=== PATIENT | male | born 1950 | race Caucasian/White ===

== ENCOUNTER → 2017-03-08 | Outpatient (CLI) | payer OTHER, BC | LOC: BHFA 10:45 | PROVIDERS: ATTEND Internal Medicine Cardiovascular Disease | DX: R06.00 Dyspnea, unspecified (principal) ==

== ENCOUNTER → 2017-03-12 | Outpatient (CLI) | payer OTHER, BC | LOC: BHFA 10:30 | PROVIDERS: ATTEND Internal Medicine Cardiovascular Disease | DX: I25.10 Atherosclerotic heart disease of native coronary artery without angina pectoris (principal); I49.3 Ventricular premature depolarization; Z95.5 Presence of coronary angioplasty implant and graft ==

== ENCOUNTER 2017-03-23 20:11 | Emergency (ER) | payer OTHER, BC ==
[2017-03-23 20:16] VITALS: TEMP 97.5; O2SAT 100
--- NOTE | 2017-03-23 20:23 | CPEKG ---
Heart Rate: 48 RR Interval: 1250 P-R Interval: 180 QRSD Interval: 96 QT Interval: 468 QTC Interval: 419 P [place]: 49 QRS [place]: 21 T Wave [place]: 103 EKG Severity - ABNORMAL ECG - EKG Impression: SINUS BRADYCARDIA EKG Impression: NONSPECIFIC T ABNORMALITIES, LATERAL LEADS Electronically Signed By: Tawanda Michelle 23-Mar-2017 20:46:08
--- NOTE | 2017-03-23 20:26 | EDPHY ---
HPI/HX/ROS/PE/MDM Narrative: CHIEF COMPLAINT: Shortness of breath HPI: This patient is a 66-year-old male with history of coronary artery disease with stenting who presents to the Emergency Department complaining of gradually worsening dyspnea over the past month. He was seen two weeks ago by Dr. Teague, his molding technician, and had a normal echocardiogram two weeks ago. Tonight, he felt that he was gasping for air with the sensation of chest tightness, prompting his presentation to the ED. At time of arrival, he is feeling better following administration of O2 via nasal cannula. He has no complaints. He denies any recent travel. Medical history also includes Lyme Disease diagnosis in September 2016. REVIEW OF SYSTEMS: Aside from elements discussed in the HPI, a comprehensive 10-point review of systems was reviewed and is negative. PMH: Lyme disease (September 2016), CAD with 7 stents and remote history of CABG, seep apnea (CPAP). SOCIAL HISTORY: at bedside. PHYSICAL EXAM: General:Patient is alert, in no acute distress. ENT:Eyes are normal to inspection. ENT inspection normal. Neck: Normal inspection. Full range of motion. Respiratory:No respiratory distress. Breath sounds normal bilaterally. Cardiovascular: Regular rate and rhythm. Strong peripheral pulses. Normal cap refill. Abdomen:The abdomen is nontender to palpation. There are no peritoneal signs. There are normal bowel sounds. Back: Normal to inspection. No tenderness to palpation. Skin: Normal color. No rash. Warm and dry. Extremities: Normal appearance. Full range of motion. Neuro: Oriented x3. Normal motor function. Normal sensory function. ED Course: 66-year-old male with history of CAD and recent diagnosis of Lyme Disease presents with complaint of worsening dyspnea of the past month, most severe tonight when he was gasping for air. He has been evaluated recently by cardiology with a normal echo. He is tachypneic with RR 21 and bradycardic with HR 47 at time of arrival. No significant findings on exam. Will proceed with labs, EKG, and chest x-ray. Patient was placed on O2 via NC and reports significant improvement to his dyspnea. EKG was ordered and interpreted by myself. Sinus bradycardia, rate 48. Please see [employer] system for official reading. Labs obtained and are largely unremarkable. Troponin is negative. D-dimer is negative. NT-proBNP is normal. Chest x-ray reviewed by me is normal. I discussed EKG, imaging, and lab findings with the patient. He is asymptomatic at this time and feels comfortable returning home. I offered him admission for further observation and evaluation; he declines this. Ambulatory O2 sat is 98% on RA. The patient will be discharged home in good condition with strict return precautions and instructions to follow-up with a developer programmer analyst. He is agreeable to this. MDM: This patient presents with subjective dyspnea of unclear etiology. Given his cardiac history, we performed an extensive workup to exclude ACS, PE, PNA, PTX, and CHF, and there are no signs of these disorders. The patient has a normal BNP, d-dimer, troponin, CXR and vital signs. He is not hypoxic. His lungs are clear. The etiology of his symptoms is unclear but given presence of symptoms for one month with recent negative echo and normal workup here, I think he is safe for outpatient management. - Data Points Imaging Results: Imaging Impressions Chest X-Ray 03/23/17 20:28 Impression: 1. Postoperative changes related to previous open heart surgery. 2. No active cardiopulmonary disease appreciated. Laboratory Results: Laboratory Results 03/23/17 20:25 03/23/17 20:25 03/23/17 03/23/17 03/23/17 20:25 20:25 20:25 WBC RBC Hgb Hct MCV MCH MCHC RDW Plt Count MPV Neut % (Auto) Lymph % (Auto) [place] % (Auto) Eos % (Auto) Baso % (Auto) Nucleat RBC Rel Count Absolute Neuts (auto) Absolute Lymphs (auto) Absolute Monos (auto) Absolute Eos (auto) Absolute Basos (auto) Absolute Nucleated RBC Immature Gran % Immature Gran # D-Dimer 0.47 ug/mLFEU ug/mLFEU (0.00-0.50) Sodium 138 mEq/L mEq/L (134-144) Potassium 3.9 mEq/L mEq/L (3.5-5.2) Chloride 104 mEq/L mEq/L (97-110) Carbon Dioxide 23 mEq/l mEq/l (22-31) Anion Gap 11 mEq/L mEq/L (8-16) BUN 25 mg/dL H mg/dL (7-23) Creatinine 1.4 mg/dL H mg/dL (0.7-1.3) Estimated GFR 51 Glucose 82 mg/dL mg/dL (70-100) Calcium 10.3 mg/dL mg/dL (8.5-10.4) Troponin I < 0.012 ng/mL ng/mL (0-0.034) NT-Pro-B Natriuret Pep 96 pg/mL pg/mL (0-125) 03/23/17 20:25 WBC 6.05 10^3/uL 10^3/uL (3.80-9.50) RBC 4.66 10^6/uL 10^6/uL (4.40-6.38) Hgb 15.3 g/dL g/dL (13.7-17.5) Hct 43.2 % % (40.0-51.0) MCV 92.7 fL fL (81.5-99.8) MCH 32.8 pg pg (27.9-34.1) MCHC 35.4 g/dL g/dL (32.4-36.7) RDW 13.0 % % (11.5-15.2) Plt Count 208 10^3/uL 10^3/uL (150-400) MPV 11.3 fL fL (8.7-11.7) Neut % (Auto) 53.0 % % (39.3-74.2) Lymph % (Auto) 38.3 % % (15.0-45.0) [place] % (Auto) 6.9 % % (4.5-13.0) Eos % (Auto) 1.0 % % (0.6-7.6) Baso % (Auto) 0.5 % % (0.3-1.7) Nucleat RBC Rel Count 0.0 % % (0.0-0.2) Absolute Neuts (auto) 3.20 10^3/uL 10^3/uL (1.70-6.50) Absolute Lymphs (auto) 2.32 10^3/uL 10^3/uL (1.00-3.00) Absolute Monos (auto) 0.42 10^3/uL 10^3/uL (0.30-0.80) Absolute Eos (auto) 0.06 10^3/uL 10^3/uL (0.03-0.40) Absolute Basos (auto) 0.03 10^3/uL 10^3/uL (0.02-0.10) Absolute Nucleated RBC 0.00 10^3/uL 10^3/uL (0-0.01) Immature Gran % 0.3 % % (0.0-1.1) Immature Gran # 0.02 10^3/uL 10^3/uL (0.00-0.10) D-Dimer Sodium Potassium Chloride Carbon Dioxide Anion Gap BUN Creatinine Estimated GFR Glucose Calcium Troponin I NT-Pro-B Natriuret Pep General Time Seen by Provider: 03/23/17 20:25 Initial Vital Signs: Initial Vital Signs Temperature (C) 36.4 C 03/23/17 20:14 Heart Rate 47 L 03/23/17 20:14 Respiratory Rate 22 H 03/23/17 20:14 Blood Pressure 100/67 03/23/17 20:14 O2 Sat (%) 100 03/23/17 20:14 O2 Delivery Mode Room Air O2 (L/minute) 2 Allergies/Adverse Reactions: morphine Allergy (Severe, Verified 03/23/17 20:13) Hypotension Home Medications: Medication Instructions Recorded Clopidogrel Bisulfate [Clopidogrel] 75 mg PO DAILY 01/14/16 Fenofibrate [Tricor 145 mg (*)] 145 mg PO HS 01/14/16 Herbals/Supplements -Info Only 1 ea PO DAILY 01/14/16 LEVOTHYROXINE SODIUM 25 mcg PO DAILY 01/14/16 METFORMIN HCL 500 mg PO DAILY 01/14/16 Magnesium Oxide [Magnesium Oxide 200 mg PO BID 01/14/16 400 mg (*)] Multivitamins [Multivitamin (*)] 1 each PO BID 01/14/16 [place]-3 Fatty Acids [Fish Oil 1000 1,000 mg PO BID 01/14/16 mg (*)] Pitavastatin Calcium [Livalo] 2 mg PO HS 01/14/16 Ramipril 5 mg PO HS 01/14/16 Metoprolol Succinate Xr [Toprol Xl 50 mg PO DAILY #0 tab 02/07/16 50 mg (*)] Aspirin EC [Aspirin EC 325 mg (*)] 325 mg PO HS 02/13/16 Liothyronine Sodium [Cytomel 25 25 mcg PO DAILY 02/13/16 mcg (*)] Penicillin V Potassium [Penicillin 500 mg PO QID 02/13/16 VK] Acetaminophen [Tylenol 325mg (*)] 650 mg PO Q4 PRN #0 tab 02/14/16 Famotidine [Pepcid 20 MG (*)] 20 mg PO BID #0 tab 02/14/16 Nitroglycerin [Nitrostat 0.4 mg 0.4 mg SL ONCE PRN #0 btl 02/14/16 (*)] Penicillin V Potassium [Pen Vk 500 mg PO QID #0 tab 02/14/16 500mg (*)] Departure - Departure Disposition: Home, Routine, Self-Care Clinical Impression: Dyspnea Qualifiers: Dyspnea type: shortness of breath Qualified Code(s): R06.02 - Shortness of breath Condition: Good Instructions: Dyspnea (ED) Additional Instructions: 1. Call to schedule a follow-up appointment with a developer programmer analyst. We have referred you to our on-call provider, Dr. Swift. 2. Return to the Emergency Department immediately if you experience difficulty breathing, chest pain, weakness, lightheadedness, fainting, or for other serious concerns. Referrals: Gregg Swift MD [Medical Doctor] - As per Instructions Report Scribed for: Margarito Valerio Report Scribed by: Denise Jo Date of Report: 03/23/17 Time of Report: 20:25 Physician Review and Approval Statement: Portions of this note were transcribed by an ED scribe. I personally performed the history, physical exam, and medical decision making; and confirm the accuracy of the information in the transcribed note.
[2017-03-23 20:32] LABS: % IMMATURE GRANULYOCYTES 0.3 % (0.0-1.1); ABSOLUTE IMMATURE GRANULOCYTES 0.02 10^3/uL (0.00-0.10); ADD DIFF? NO; ADD MORPH? NO; ADD SCAN? NO; ATYPICAL LYMPHOCYTE FLAG 10 (0-99); FRAGMENT RBC FLAG 0 (0-99); HEMATOCRIT 43.2 % (40.0-51.0); HEMOGLOBIN 15.3 g/dL (13.7-17.5); LEFT SHIFT FLG 0 (0-99); LIPEMIA HEMOLYSIS FLAG 90 (0-99); MEAN CELL HEMOGLOBIN 32.8 pg (27.9-34.1); MEAN CELL HEMOGLOBIN CONCENTR. 35.4 g/dL (32.4-36.7); MEAN CELL VOLUME 92.7 fL (81.5-99.8); MEAN PLATELET VOLUME 11.3 fL (8.7-11.7); PLATELET CLUMPS FLAG 0 (0-99); PLATELET COUNT 208 10^3/uL (150-400); RED BLOOD CELL COUNT 4.66 10^6/uL (4.40-6.38)
[2017-03-23 20:48] LABS: ANION GAP 11 mEq/L (8-16); CALCIUM 10.3 mg/dL (8.5-10.4); CARBON DIOXIDE 23 mEq/l (22-31); CHLORIDE 104 mEq/L (97-110); CREATININE 1.4 mg/dL (0.7-1.3); GLOMERULAR FILTRATION RATE 51; GLUCOSE 82 mg/dL (70-100); POTASSIUM 3.9 mEq/L (3.5-5.2); SODIUM 138 mEq/L (134-144)
[2017-03-23 20:59] LABS: TROPONIN I < 0.012 ng/mL (0-0.034)
[2017-03-23 22:11] VITALS: BP 111/59; PULSE 58; RESP 16
== END 2017-03-23 22:09 | disposition home or self-care (01) ==
DX: R06.02 Shortness of breath (principal); I25.810 Atherosclerosis of coronary artery bypass graft(s) without angina pectoris; Z79.82 Long term (current) use of aspirin

== ENCOUNTER → 2017-03-31 | Outpatient (CLI) | payer OTHER, BC | LOC: BHFA 10:00 | PROVIDERS: ATTEND Internal Medicine Cardiovascular Disease | DX: I25.10 Atherosclerotic heart disease of native coronary artery without angina pectoris (principal); I49.3 Ventricular premature depolarization; Z95.5 Presence of coronary angioplasty implant and graft ==

== ENCOUNTER 2018-02-07 16:56 | Emergency (ER) | payer OTHER, BC ==
--- NOTE | 2018-02-07 17:06 | CPEKG ---
Heart Rate: 78 RR Interval: 769 P-R Interval: 184 QRSD Interval: 94 QT Interval: 392 QTC Interval: 447 P [place]: 42 QRS [place]: -1 T Wave [place]: 68 EKG Severity - ABNORMAL ECG - EKG Impression: SINUS RHYTHM Electronically Signed By: Gregg Lee 07-Feb-2018 18:02:38
[2018-02-07 17:13] LABS: PLATELET COUNT 235 10^3/uL (150-400)
--- NOTE | 2018-02-07 17:22 | EDPHY ---
H & P Stated Complaint: Diaphoresis and vomiting Time Seen by Provider: 02/07/18 17:19 HPI/ROS: CHIEF COMPLAINT: Diaphoresis and vomiting, intermittent paresthesias left arm x2 weeks HISTORY OF PRESENT ILLNESS: The patient presents to the emergency department from his orthopedic surgeon's office. He was being evaluated for 2 weeks of paresthesias in his left upper extremity which have been intermittent in nature. The patient developed diaphoresis and one episode of vomiting. He did not have any chest pain or shortness of breath. Patient does have a history of coronary artery disease. He is status post CABG 20 years ago and status post multiple stents. The patient reports his last stress test was approximately year half ago and normal. He has had no history of exertional chest pain or shortness of breath. The patient does complain of some mild epigastric and lower abdominal pain. The patient did have a smoothie with some sort of supplement added to it today. He developed nausea and symptoms shortly after consuming that beverage. The patient states that since throwing up he is feeling significantly better. REVIEW OF SYSTEMS: A comprehensive 10 point review of systems is otherwise negative aside from elements mentioned in the history of present illness. Source: Patient Exam Limitations: No limitations - Personal History Current Tetanus/Diphtheria Vaccine: Yes Tetanus Vaccine Date: < 10 years - Medical/Surgical History Hx Asthma: No Hx Chronic Respiratory Disease: No Hx Diabetes: Yes Hx Cardiac Disease: Yes Hx Renal Disease: No Hx Cirrhosis: No Hx Alcoholism: No Hx HIV/AIDS: No Hx Splenectomy or Spleen Trauma: No Other PMH: HTN, NIDDM, CABG 3 vessel, stents LAD and RCA, appy, YURI w/ CPAP - Social History Smoking Status: Former smoker - Physical Exam Exam: General Appearance: Alert, no distress Eyes: Pupils equal and round no pallor or injection ENT, Mouth: Mucous membranes moist Respiratory: There are no retractions, lungs are clear to auscultation Cardiovascular: Regular rate and rhythm Gastrointestinal: Minimal epigastric tenderness to palpation Neurological: 5/5 strength all 4 extremities Skin: Warm and dry, no rashes Musculoskeletal: Neck is supple nontender Extremities: symmetrical, full range of motion Constitutional: Initial Vital Signs Temperature (C) 36.6 C 02/07/18 16:59 Heart Rate 82 02/07/18 16:59 Respiratory Rate 16 02/07/18 16:59 Blood Pressure 114/70 02/07/18 16:59 O2 Sat (%) 93 02/07/18 16:59 O2 Delivery Mode Room Air Allergies/Adverse Reactions: morphine Allergy (Severe, Verified 02/07/18 17:03) Hypotension Home Medications: Medication Instructions Recorded Clopidogrel Bisulfate [Clopidogrel] 75 mg PO DAILY 01/14/16 Fenofibrate [Tricor 145 mg (*)] 145 mg PO HS 01/14/16 Herbals/Supplements -Info Only 1 ea PO DAILY 01/14/16 LEVOTHYROXINE SODIUM 25 mcg PO DAILY 01/14/16 METFORMIN HCL 500 mg PO DAILY 01/14/16 Magnesium Oxide [Magnesium Oxide 200 mg PO BID 01/14/16 400 mg (*)] Multivitamins [Multivitamin (*)] 1 each PO BID 01/14/16 [place]-3 Fatty Acids [Fish Oil 1000 1,000 mg PO BID 01/14/16 mg (*)] Pitavastatin Calcium [Livalo] 2 mg PO HS 01/14/16 Ramipril 5 mg PO HS 01/14/16 Metoprolol Succinate Xr [Toprol Xl 50 mg PO DAILY #0 tab 02/07/16 50 mg (*)] Aspirin EC [Aspirin EC 325 mg (*)] 325 mg PO HS 02/13/16 Liothyronine Sodium [Cytomel 25 25 mcg PO DAILY 02/13/16 mcg (*)] Penicillin V Potassium [Penicillin 500 mg PO QID 02/13/16 VK] Acetaminophen [Tylenol 325mg (*)] 650 mg PO Q4 PRN #0 tab 02/14/16 Famotidine [Pepcid 20 MG (*)] 20 mg PO BID #0 tab 02/14/16 Nitroglycerin [Nitrostat 0.4 mg 0.4 mg SL ONCE PRN #0 btl 02/14/16 (*)] Penicillin V Potassium [Pen Vk 500 mg PO QID #0 tab 02/14/16 500mg (*)] Medical Decision Making - Diagnostics EKG Interpretation: EKG: Complete interpretation has been separately recorded in the [facility] archive. Summary impression: Sinus rhythm, rate 90 ED Course/Re-evaluation: The patient presents the ED after an episode of diaphoresis, nausea and vomiting. The patient does have a history of coronary artery disease but denies any chest pain or shortness of breath. He did have some mild abdominal discomfort. The patient had an IV established. He received a L of normal saline. EKG and troponin are normal. The patient had a slightly elevated lipase felt to be clinically insignificant. I re-evaluated the patient at 7:00 p.m.. He is currently feeling better. He has minimal tenderness to palpation in the left lower quadrant. The patient was offered further observation and possibly CT scanning in the setting of his mild abdominal tenderness. The patient prefers to go home. He does understand that we have not fully exclude the possibility of diverticulitis or intra-abdominal process. My clinical suspicion that this is occurring is quite low. The patient is reasonable and will return for any markedly worsening symptoms. Discussion: The patient presents to the ED after an episode of diaphoresis which was improved with vomiting. There is no evidence of cardiac ischemia. The patient's abdominal examination is benign without evidence of an acute surgical abdomen. The patient did have a smoothie with some dietary supplement shortly and then developed his symptoms. Differential Diagnosis: Differential diagnosis considered includes gastroenteritis, pancreatitis, cholecystitis, dehydration, metabolic abnormality - Data Points Laboratory Results: Laboratory Results 02/07/18 16:45 02/07/18 16:45 02/07/18 02/07/18 16:45 16:45 WBC 9.14 10^3/uL 10^3/uL (3.80-9.50) RBC 5.06 10^6/uL 10^6/uL (4.40-6.38) Hgb 16.5 g/dL g/dL (13.7-17.5) Hct 47.0 % % (40.0-51.0) MCV 92.9 fL fL (81.5-99.8) MCH 32.6 pg pg (27.9-34.1) MCHC 35.1 g/dL g/dL (32.4-36.7) RDW 13.0 % % (11.5-15.2) Plt Count 235 10^3/uL 10^3/uL (150-400) MPV 11.4 fL fL (8.7-11.7) Neut % (Auto) 70.6 % % (39.3-74.2) Lymph % (Auto) 20.8 % % (15.0-45.0) [place] % (Auto) 7.5 % % (4.5-13.0) Eos % (Auto) 0.5 % L % (0.6-7.6) Baso % (Auto) 0.3 % % (0.3-1.7) Nucleat RBC Rel Count 0.0 % % (0.0-0.2) Absolute Neuts (auto) 6.44 10^3/uL 10^3/uL (1.70-6.50) Absolute Lymphs (auto) 1.90 10^3/uL 10^3/uL (1.00-3.00) Absolute Monos (auto) 0.69 10^3/uL 10^3/uL (0.30-0.80) Absolute Eos (auto) 0.05 10^3/uL 10^3/uL (0.03-0.40) Absolute Basos (auto) 0.03 10^3/uL 10^3/uL (0.02-0.10) Absolute Nucleated RBC 0.00 10^3/uL 10^3/uL (0-0.01) Immature Gran % 0.3 % % (0.0-1.1) Immature Gran # 0.03 10^3/uL 10^3/uL (0.00-0.10) Sodium 144 mEq/L mEq/L (135-145) Potassium 4.4 mEq/L mEq/L (3.3-5.0) Chloride 103 mEq/L mEq/L (97-110) Carbon Dioxide 23 mEq/l mEq/l (22-31) Anion Gap 18 mEq/L H mEq/L (8-16) BUN 23 mg/dL mg/dL (7-23) Creatinine 1.2 mg/dL mg/dL (0.7-1.3) Estimated GFR 60 Glucose 81 mg/dL mg/dL (70-100) Calcium 9.5 mg/dL mg/dL (8.5-10.4) Total Bilirubin 0.9 mg/dL mg/dL (0.1-1.4) Conjugated Bilirubin 0.6 mg/dL H mg/dL (0.0-0.5) Unconjugated Bilirubin 0.3 mg/dL mg/dL (0.0-1.1) AST 28 IU/L IU/L (17-59) ALT 33 IU/L IU/L (21-72) Alkaline Phosphatase 59 IU/L IU/L (38-126) Total Protein 7.1 g/dL g/dL (6.3-8.2) Albumin 4.4 g/dL g/dL (3.5-5.0) Lipase 323 IU/L H IU/L (23-300) Departure - Departure Disposition: Home, Routine, Self-Care Clinical Impression: Vomiting, Abdominal pain Condition: Good Instructions: Acute Nausea and Vomiting (ED), Acute Abdominal Pain (ED) Additional Instructions: Sometimes we are unable to diagnose an obvious cause of abdominal pain in the Emergency Department. Based upon our evaluation today, we see no obvious explanation for your pain. Because more serious conditions can be difficult to diagnose early in the course of their presentation, we ask that you return to the Emergency Department in 8-12 hours for a recheck if you are still having pain. This is necessary to exclude the development of a more serious condition such as appendicitis or other intra-abdominal emergency. In the event your pain markedly increases before that time or you develop intractable vomiting or fever return to the Emergency Department immediately.
[2018-02-07 19:49] VITALS: BP 117/66
== END 2018-02-07 19:59 | disposition home or self-care (01) ==
LOC: EDUNIT#
DX: R11.10 Vomiting, unspecified (principal); R10.9 Unspecified abdominal pain; I10 Essential (primary) hypertension; E11.9 Type 2 diabetes mellitus without complications; Z79.84 Long term (current) use of oral hypoglycemic drugs; Z87.891 Personal history of nicotine dependence

== ENCOUNTER 2018-09-22 10:49 | Inpatient (IN) | payer OTHER, BC ==
[2018-09-22 11:23] LABS: PLATELET COUNT 217 10^3/uL (150-400)
--- NOTE | 2018-09-22 11:25 | CPEKG ---
Test Reason : OPEN Blood Pressure : / mmHG Vent. Rate : 059 BPM Atrial Rate : 059 BPM P-R Int : 178 ms QRS Dur : 104 ms QT Int : 417 ms P-R-T Axes : 032 -03 058 degrees QTc Int : 414 ms Sinus rhythm Confirmed by Neelam Chacon ([id number]) on 09/22/2018 11:24:31 AM Referred By: Confirmed By:Neelam Chacon
--- NOTE | 2018-09-22 12:14 | EDPHY ---
H & P Stated Complaint: SOB, CP Time Seen by Provider: 09/22/18 11:30 HPI/ROS: CHIEF COMPLAINT: Shortness of breath HISTORY OF PRESENT ILLNESS: 68-year-old male with coronary disease, status post CABG, presents with exertional shortness of breath. Onset of shortness of breath 2 months ago, gradually increasing. The shortness of breath occurs with exertion and is associated with chest tightness and occasional tingling of the left arm. This morning he had a similar episode of exertional shortness of breath. Symptoms have resolved. He was seen by Dr. Greer in the office recently, with a plan to do outpatient cardiac catheterization. REVIEW OF SYSTEMS: complete 10 point ROS reviewed and is negative except for the noted elements in the HPI - Personal History Current Tetanus/Diphtheria Vaccine: Yes Current Tetanus Diphtheria and Acellular Pertussis (TDAP): Yes Tetanus Vaccine Date: < 10 years - Medical/Surgical History Hx Asthma: No Hx Chronic Respiratory Disease: No Hx Diabetes: Yes Hx Cardiac Disease: Yes Hx Renal Disease: No Hx Cirrhosis: No Hx Alcoholism: No Hx HIV/AIDS: No Hx Splenectomy or Spleen Trauma: No Other PMH: HTN, NIDDM, CABG 3 vessel, stents LAD and RCA, appy, YURI w/ CPAP, [place], - Social History Smoking Status: Former smoker Alcohol Use: Sober Drug Use: None - Physical Exam Exam: General Appearance: Alert, pleasant Eyes: Pupils equal and round, no conjunctival pallor or injection ENT, Mouth: Mucous membranes moist Neck: Normal inspection Respiratory: Lungs are clear to auscultation Cardiovascular: Regular rate and rhythm Gastrointestinal: Abdomen is soft and nontender Neurological: A&O, nonfocal, normal gait Skin: Warm and dry, no rash Extremities: Nontender, no pedal edema Psychiatric: Mood and affect normal Constitutional: Initial Vital Signs Temperature (C) 36.9 C 09/22/18 10:56 Heart Rate 67 09/22/18 10:56 Respiratory Rate 16 09/22/18 10:56 Blood Pressure 164/81 H 09/22/18 10:56 O2 Sat (%) 97 09/22/18 10:56 O2 Delivery Mode Room Air Allergies/Adverse Reactions: morphine Allergy (Severe, Verified 09/22/18 10:54) Hypotension Home Medications: Medication Instructions Recorded Clopidogrel Bisulfate [Clopidogrel] 75 mg PO DAILY 01/14/16 Fenofibrate [Tricor 145 mg (*)] 145 mg PO HS 01/14/16 Herbals/Supplements -Info Only 1 ea PO DAILY 01/14/16 Magnesium Oxide [Magnesium Oxide 200 mg PO BID 01/14/16 400 mg (*)] Multivitamins [Multivitamin (*)] 1 each PO BID 01/14/16 [place]-3 Fatty Acids [Fish Oil 1000 1,000 mg PO BID 01/14/16 mg (*)] Pitavastatin Calcium [Livalo] 2 mg PO HS 01/14/16 Metoprolol Succinate Xr [Toprol Xl 50 mg PO DAILY #0 tab 02/07/16 50 mg (*)] Liothyronine Sodium [Cytomel 25 25 mcg PO DAILY 02/13/16 mcg (*)] Nitroglycerin [Nitrostat 0.4 mg 0.4 mg SL ONCE PRN #0 btl 02/14/16 (*)] Cyanocobalamin [Vitamin B12 (*)] 1,000 mcg PO DAILY 09/22/18 Levothyroxine [Synthroid 50 mcg 50 mcg PO DAILY06 09/22/18 (*)] Liothyronine Sodium [Cytomel 5 mcg 5 mcg PO DAILY 09/22/18 (*)] Ramipril [Altace] 10 mg PO DAILY 09/22/18 metFORMIN HCL [Glucophage 500 mg 500 mg PO BID 09/22/18 (*)] Medical Decision Making - Diagnostics EKG Interpretation: EKG interpreted by me reveals sinus rhythm, rate 59, no ST or T segment changes. Interpretation: Normal EKG. Imaging Results: Imaging Impressions Chest X-Ray 09/22/18 11:16 Impression: 1. No acute process. 2. Stigmata of previous open-heart surgery and coronary artery disease. Abdomen Ultrasound 09/22/18 13:14 Impression: 1. Fatty liver. 2. Lobularity of the lateral right renal midpole. This may represent normal renal contour for this patient, though would consider renal protocol CT to exclude underlying mass. Findings and recommendations discussed with MARRY DURAN at 1444 hour, 2017. Imaging: I viewed and interpreted images myself ED Course/Re-evaluation: This pt presents with exertional SOB, his anginal equivalent sx. stat EKG is unremarkable and initial troponin normal. CXR: NAD. Consulted Brayan Pena saw pt in ED. Plan for admission by hospitalists, cards consult. Nuc stress test in am. The hospitalist service was consulted for admission. Pt stable and asymptomatic throughout ED stay. Differential Diagnosis: includes though not limited to ACS, PE, pulm edema, PTX, pneumonia - Data Points Laboratory Results: Laboratory Results 09/22/18 11:06 09/22/18 11:06 09/22/18 09/22/18 09/22/18 11:08 11:06 11:06 WBC RBC Hgb Hct MCV MCH MCHC RDW Plt Count MPV Neut % (Auto) Lymph % (Auto) Lander % (Auto) Eos % (Auto) Baso % (Auto) Nucleat RBC Rel Count Absolute Neuts (auto) Absolute Lymphs (auto) Absolute Monos (auto) Absolute Eos (auto) Absolute Basos (auto) Absolute Nucleated RBC Immature Gran % Immature Gran # Sodium Potassium Chloride Carbon Dioxide Anion Gap BUN Creatinine Estimated GFR Glucose Calcium Total Bilirubin 0.9 mg/dL mg/dL (0.1-1.4) Conjugated Bilirubin 0.3 mg/dL mg/dL (0.0-0.5) Unconjugated Bilirubin 0.6 mg/dL mg/dL (0.0-1.1) AST 34 IU/L IU/L (17-59) ALT 34 IU/L IU/L (21-72) Alkaline Phosphatase 65 IU/L IU/L (38-126) POC Troponin I 0.01 ng/mL ng/mL (0.00-0.08) NT-Pro-B Natriuret Pep 77 pg/mL pg/mL (0-125) Total Protein 6.9 g/dL g/dL (6.3-8.2) Albumin 4.2 g/dL g/dL (3.5-5.0) TSH 0.619 uIU/mL uIU/mL (0.465-4.680) 09/22/18 09/22/18 11:06 11:06 WBC 5.20 10^3/uL 10^3/uL (3.80-9.50) RBC 4.65 10^6/uL 10^6/uL (4.40-6.38) Hgb 15.5 g/dL g/dL (13.7-17.5) Hct 43.5 % % (40.0-51.0) MCV 93.5 fL fL (81.5-99.8) MCH 33.3 pg pg (27.9-34.1) MCHC 35.6 g/dL g/dL (32.4-36.7) RDW 12.9 % % (11.5-15.2) Plt Count 217 10^3/uL 10^3/uL (150-400) MPV 10.7 fL fL (8.7-11.7) Neut % (Auto) 64.6 % % (39.3-74.2) Lymph % (Auto) 26.5 % % (15.0-45.0) Lander % (Auto) 5.8 % % (4.5-13.0) Eos % (Auto) 2.1 % % (0.6-7.6) Baso % (Auto) 0.6 % % (0.3-1.7) Nucleat RBC Rel Count 0.0 % % (0.0-0.2) Absolute Neuts (auto) 3.36 10^3/uL 10^3/uL (1.70-6.50) Absolute Lymphs (auto) 1.38 10^3/uL 10^3/uL (1.00-3.00) Absolute Monos (auto) 0.30 10^3/uL 10^3/uL (0.30-0.80) Absolute Eos (auto) 0.11 10^3/uL 10^3/uL (0.03-0.40) Absolute Basos (auto) 0.03 10^3/uL 10^3/uL (0.02-0.10) Absolute Nucleated RBC 0.00 10^3/uL 10^3/uL (0-0.01) Immature Gran % 0.4 % % (0.0-1.1) Immature Gran # 0.02 10^3/uL 10^3/uL (0.00-0.10) Sodium 139 mEq/L mEq/L (135-145) Potassium 4.4 mEq/L mEq/L (3.5-5.2) Chloride 108 mEq/L mEq/L (97-110) Carbon Dioxide 24 mEq/l mEq/l (22-31) Anion Gap 7 mEq/L mEq/L (6-14) BUN 20 mg/dL mg/dL (7-23) Creatinine 1.1 mg/dL mg/dL (0.7-1.3) Estimated GFR > 60 Glucose 121 mg/dL H mg/dL (70-100) Calcium 9.7 mg/dL mg/dL (8.5-10.4) Total Bilirubin Conjugated Bilirubin Unconjugated Bilirubin AST ALT Alkaline Phosphatase POC Troponin I NT-Pro-B Natriuret Pep Total Protein Albumin TSH Medications Given: Clopidogrel Bisulfate (Plavix) 75 mg PO DAILY PENDING SALE TO [facility] Stop: 03/21/19 14:29 Last Admin: 09/22/18 15:40 Dose: 75 mg Fenofibrate (Tricor) 145 mg PO HS [facility]ENDING [facility] TO [facility] Stop: 03/21/19 20:59 Last Admin: 09/22/18 21:08 Dose: 145 mg Insulin Human Lispro (Humalog Lispro) 0 unit SC TIDMEAL PENDING SALE TO [facility] PRN Reason: Protocol Stop: 03/21/19 17:59 Last Admin: 09/22/18 17:15 Dose: Not Given Levothyroxine Sodium (Synthroid) 50 mcg PO DAILY06 [facility]END[facility] Stop: 03/21/19 15:29 Last Admin: 09/22/18 16:15 Dose: Not Given Liothyronine Sodium (Cytomel) 25 mcg PO DAILY PENDING SALE TO [facility] Stop: 03/21/19 15:29 Last Admin: 09/22/18 16:16 Dose: Not Given Liothyronine Sodium (Cytomel) 5 mcg PO DAILY PENDING SALE TO [facility] Stop: 03/21/19 15:29 Last Admin: 09/22/18 16:16 Dose: Not Given Magnesium Oxide (Magnesium Oxide) 200 mg PO BID PENDING SALE TO [facility] Stop: 03/21/19 20:59 Last Admin: 09/22/18 21:08 Dose: 200 mg Metoprolol Succinate (Toprol Xl) 50 mg PO DAILY PENDING SALE TO [facility] Stop: 03/21/19 14:29 Last Admin: 09/22/18 15:40 Dose: 50 mg Ramipril (Altace) 10 mg PO DAILY PENDING [facility] TO [facility] Stop: 03/21/19 14:29 Last Admin: 09/22/18 15:41 Dose: 10 mg Point of Care Test Results: Chemistry 09/22/18 11:08 POC Troponin I 0.01 ng/mL ng/mL (0.00-0.08) Departure - Departure Disposition: [facility] Acute Clinical Impression: Dyspnea on exertion CAD (coronary artery disease) Qualifiers: Coronary Disease-Associated Artery/Lesion type: unspecified vessel or lesion type [place] vs. transplanted heart: unspecified whether [place] or transplanted heart Associated angina: with unstable angina Qualified Code(s): I25.110 - Atherosclerotic heart disease of [place] coronary artery with unstable angina pectoris
[2018-09-22] MEDS ORDERED: NITROGLYCERIN 0.4 MG BTL SL PRN (14:21)
[2018-09-22] MEDS ORDERED: ONDANSETRON DISINTEGRATING 4 MG TAB PO PRN (14:22)
[2018-09-22] MEDS ORDERED: ONDANSETRON 4 MG/2 ML VIAL IVP PRN (14:22)
--- NOTE | 2018-09-22 15:12 | GCON ---
CARDIOLOGY CONSULTATION INDICATION FOR CONSULTATION: Known history of CAD, ongoing episodes of shortness of breath, fatigue (similar symptoms to what he had prior to previous PCIs,questionable anginal equivalent). REQUEST FOR CONSULTATION: Dr. Chacon of the Emergency Department Services HISTORY OF PRESENT ILLNESS: The patient is a 68-year-old male who is known to our practice. He has significant past medical history, includes CAD with remote CABG, with multiple PCIs since then, most recent VANDANA implantation into the LAD and RCA January of 2016), hypertension, hyperlipidemia, type 2 diabetes, and history of premature ventricular contractions. Patient reporting over the last several weeks of increased shortness of breath with exertion. He has also noted increased fatigue symptoms. He has noted occasional tingling in his left arm with exertion, but has noted also with rest. He reports the symptoms last for 5 to 10 minutes, and dissipate with rest. He reports these are somewhat similar symptoms to what he has had in the past, but he also reports that they may be significantly similar to what he has had with Lyme disease in the past. The patient also reports occasional episode of nausea, and has had some mild right upper quadrant abdominal pain. He denies any recent fevers, chills, or night sweats. Denies of any hematemesis or blood in stools. Reports no palpitations. Denies any orthopnea, PND, edema, near-syncope, or syncopal events. Reporting no symptoms suggestive of TIA or CVA. He has recently seen his primary emergency room rn, Dr. Greer, yesterday who had raised concern, and patient was scheduled to undergo nuclear stress test on Wednesday of next week. He does state that after getting home from his appointment, he became more concerned with his shortness of breath with exertion and ongoing fatigue, he felt it was best that he be further evaluated in the emergency department today. Upon arrival, electrocardiogram was done, which showed sinus rhythm with no significant ST or T-wave abnormalities. Initial troponin was 0.01. ProBNP 77. PAST MEDICAL HISTORY: Includes: 1. CAD, with history of CABG and multiple PCI reporting total of 7 stents implantation. 2. Hypertension. 3. Type 2 diabetes. 4. Chronic fatigue symptoms. 5. Lyme disease. 6. YURI (CPAP). 7. Hypothyroidism. 8. Hyperlipidemia. PREVIOUS SURGERIES: Include CABG, PCI, knee surgery, appendectomy, uvulopalatoplasty. FAMILY HISTORY: Patient reports family history of heart disease, with multiple family history of having myocardial infarction at young age. SOCIAL HISTORY: He is retired [employer]. Has 3 children. He occasionally uses occasional alcohol, and he drinks caffeine on a daily basis. He is a former tobacco user. Denies of any illicit drug use. ALLERGIES: Morphine. HOME MEDICATIONS: Include levothyroxine 50 mcg p.o. daily, herbs and supplements, Tricor 145 mg p.o. h.s., vitamin B12 at 1000 mg p.o. daily, clopidogrel 75 mg p.o. daily, metformin 500 mg p.o. b.i.d., ramipril 10 mg p.o. daily, 2 mg p.o. h.s., omega-3 1000 mg p.o. b.i.d., Nitrostat 0.4 mg sublingual p.r.n., multivitamins, metoprolol succinate 50 mg p.o. daily, magnesium oxide 200 mg p.o. b.i.d., Cytomel 30 mcg p.o. daily. REVIEW OF SYSTEMS: A 10-point review of systems done on patient all negative, except as mentioned above. PHYSICAL EXAMINATION: GENERAL APPEARANCE: Medium built, mildly obese, male. He is alert and oriented to person, place, time, and situation. He appears to be under no acute distress. VITAL SIGNS: Blood pressure 130/68, heart rate 51 sinus rhythm on the monitor, respirations 15 saturating 97% on room air, temperature 36.9 degrees Celsius. HEENT: Head is normocephalic. Lips and tongue are pink and moist with no signs of cyanosis. Conjunctivae pink. NECK: Trachea is midline, +2 carotid pulses bilateral. No auscultated bruits. No jugular vein distention. RESPIRATORY: Lungs clear to auscultation. No rhonchi, rales or wheezes. No accessory muscle use. No intercostal muscle retraction noted. CARDIAC: Regular rate, regular rhythm, S1 , S2. No S3, S4, gallops, rubs, or murmurs noted. ABDOMEN: Soft. Patient reporting pain upon palpation of right upper quadrant. No palpable masses. Normal bowel sounds x4 quadrants. No organomegaly noted. SKIN: Luis Lopez, warm, dry. No cyanosis. No clubbing. No peripheral edema. VASCULAR: +2 carotids bilateral, +2 radials bilateral, +1 dorsal pedal and posterior tibial pulses bilateral. LABORATORY STUDIES: Drawn today show WBC of 5.20, hemoglobin 15.5, hematocrit 43.5, platelet count 217. Sodium 139, potassium 4.4, chloride 108, CO2 24, BUN 20, creatinine 1.1, glucose 121, calcium 9.7. Total bilirubin 0.9, AST 34, ALT 34, alkaline phosphate 65. Troponin less than 0.01. ProBNP 77. Total protein 6.9, albumin 4.2. STUDIES: Electrocardiogram as mentioned above. Chest x-ray showing no acute processes. Previous studies: Patient's most recent heart catheterization was February 06, 2016 , noting that he had an SVG to OM patent, RIOJAS to LAD patent, SVG to PLV and circumflex complex that was patent, occluded SVG to diagonal branch. Patient did have a 2.75 x 28 Synergy stent implanted to the [place] LAD at that time. Patient did return on 02/13/2016, for a stent implantation to his distal RCA 3.5 x 24 Synergy stent. Patient's most recent echocardiogram was done on March 08, 2017, showing normal LV size and thickness, normal LV systolic function with no wall motion abnormalities, EF of 66% diastolic dysfunction noted, mild aortic sclerosis, with no significant regurgitation or stenosis. ASSESSMENT/PLAN: 1. Shortness of breath with exertional shortness of breath, with occasional left arm pain with history of CAD: Patient reporting somewhat similar symptoms that he had prior to his percutaneous coronary intervention and coronary artery bypass graft in the past. Currently, his electrocardiogram shows no acute changes suggesting of ischemia. Negative troponin. He is currently on anti- platelet therapy of clopidogrel. At this time, I recommended that he be admitted to the hospital, which we will cycle troponin levels overnight. If they remain negative, then I would recommend that we proceed with him undergoing Lexiscan MPI stress testing as ordered by Dr. Greer. If he does have significant elevation, then consideration of having him undergoing coronary angiogram. Will continue him on current antiplatelet therapy of clopidogrel. Will also have him continue on home dose of beta-ruddy, metoprolol. Will also have him get an echocardiogram today. 2. Hyperlipidemia: Patient with significant history of hyperlipidemia, would continue on current statin and Tricor home dosage. We will check a fasting lipid panel in a.m. for evaluation of therapy. 3. Abdominal pain: I have discussed the patient reporting ongoing episodes of right upper quadrant abdominal pain with some nausea, mild tenderness upon palpation. I have discussed this with Dr. Chacon of Emergency Department services. She will have the Hospitalist services see and she has ordered an ultrasound, which is currently pending. 4. Hypertension: Blood pressure appears fairly well controlled at this time. We will continue him on home dosages of metoprolol succinate as mentioned above , and also will continue on ramipril. 5. Obstructive sleep apnea: Patient should use his home continuous positive airway pressure at night. Thank you for this consultation. We will be glad to follow along with you. /[id number]/MODL MTDD
[2018-09-22] MEDS ORDERED: D50W 25 GM/50 ML SYR IVP PRN (15:19)
--- NOTE | 2018-09-22 15:30 | ECHO ---
[email or web address] [address] Main: [phone] Fax: [email or web address] Echocardiogram Name: LUCIUS WINSTON MR#: [id number] Study Date: 09/22/2018 Study Time: 02:41 PM Date of : 1950 Age: 68 year(s) Height: 177.8 cm (70 in.) Weight: 106.6 kg (235 lb.) BSA: 2.24 m2 Gender: Male Examination: Echo Indication: sob and CAD Image Quality: Adequate Contrast: Requested by: Brayan Andrea BP: 130 mmHg/74 mmHg Heart Rate: Rhythm: Indication: sob and CAD Procedure Staff Natural Resources Specialist: Lorena Carbajal RDCS Reading Physician: Lars Prabhakar MD Requesting Provider: Conclusions: Normal size left ventricle. Mild concentric LV hypertrophy. EF is 64 %. Normal diastolic LV function. Trivial mitral valve regurgitation. The aortic valve is tri-leaflet. Mild calcific aortic valve stenosis. Mean aortic valve gradient 12. Mild aortic valve regurgitation is present. Trivial tricuspid valve regurgitation. Right ventricular systolic pressure measures 29mmHg. No pericardial effusion. No significant change compared to 01/14/2016. Measurements: Chambers Valvular Assessment AV/MV Valvular Assessment TV/PV Normal Normal Normal Name Value Range Name Value Range Name Value Range Ao Mackenzie (2D): 3.3 cm (1.4 cm-2.6 AV Vmax: 2.20 m/s (1 m/s-1.7 TR Vmax: 2.44 mm/s ( - ) cm) m/s) TR PGmax: 24 mmHg ( - ) IVSd (2D): 1.3 cm (0.6 cm-1.1 AV maxP mmHg ( - ) syst. PAP: 29 mmHg ( - ) cm) AV meanP mmHg ( - ) PV Vmax: 1.19 m/s (0.6 m/s-0.9 LVDd (2D): 5.1 cm (4.2 cm-5.9 VINICIUS (VTI): 1.8 cm ( - ) m/s) cm) MV E Vmax: 0.81 m/s ( - ) PV PGmax: 6 mmHg ( - ) LVDs (2D): 3.1 cm (2.1 cm-4 MV A Vmax: 0.72 m/s ( - ) cm) MV E/A: 1.13 ( - ) LVPWd (2D): 1.3 cm (0.6 cm-1 cm) MV PHT: 0.066 s ( - ) LVOTd 1.9 cm 1.9 cm mm MVA (PHT): 3.3 s ( - ) LVEF (MOD4): 64 % (>=55 %) Patient: LUCIUS WINSTON Study Date: 09/22/2018 Page 1 of 2 02:41 PM RVDd(2D): 3.6 cm (1.9 cm-3.8 cmmm) Continued Measurements: Chambers Valvular Assessment AV/MV Valvular Assessment TV/PV Name Value Name Value Name Value LADs: 3.9 cm MV DecTime: 232 m/s CVP (est.): 5 mmHg LADs Lon.5 cm MV E' Septal: 0.09 m/s LA Area: 18.8 cm2 MV E/E' Septal: 8.70 LA Volume: 57 ml MV E/E' Lateral: 6.10 LA Volume Index: 25.4 ml/m2 RA Area: 18.6 cm2 Additional Vessels Name Value Ao Ascendin.6 cm Inferior Vena Cava: 1.6 cm Findings: Left Ventricle: Normal size left ventricle. Mild concentric LV hypertrophy. Normal global systolic LV function. EF is 64 %. Normal diastolic LV function. Right Ventricle: Normal size right ventricle. Normal RV function. Left Atrium: The left atrium is normal in size. Right Atrium: The right atrium is normal in size. Mitral Valve: The mitral valve is normal in appearance and function. Trivial mitral valve regurgitation. No mitral stenosis is present. Aortic Valve: The aortic valve is tri-leaflet. Mild calcific aortic valve stenosis. Mean aortic valve gradient 12. Mild aortic valve regurgitation is present. Tricuspid Valve: The tricuspid valve is normal in appearance and function. Trivial tricuspid valve regurgitation. The pulmonary artery pressure is normal. Right ventricular systolic pressure measures 29mmHg. Pulmonic Valve: The pulmonic valve is normal in appearance and function. Trivial pulmonic valve regurgitation. Aorta: The aorta is normal. Normal size aortic root measuring 3.3 cm. Normal size ascending aorta measuring 3.6 cm. IVC: The IVC is normal sized. Pericardium: No pericardial effusion. No pleural effusion. Exam Comments: Patient history triple bypass. (No Signature Object) Patient: LUCIUS WINSTON Study Date: 09/22/2018 Page 2 of 2 02:41 PM [id number]
[2018-09-22] MEDS: METOPROLOL SUCCINATE XR 50 MG TAB PO SCH (15:40)
[2018-09-22] MEDS: CLOPIDOGREL BISULFATE 75 MG TAB PO SCH (15:40)
[2018-09-22] MEDS: RAMIPRIL 5 MG CAP PO SCH (15:41)
[2018-09-22] MEDS: LEVOTHYROXINE 50 MCG TAB PO SCH (16:15)
[2018-09-22] MEDS: LIOTHYRONINE SODIUM 5 MCG TAB PO SCH (16:16)
[2018-09-22] MEDS: LIOTHYRONINE SODIUM 25 MCG TAB PO SCH (16:16)
--- NOTE | 2018-09-22 16:19 | PDGENHP ---
<Radha Cano - Last Filed: 09/22/18 16:41> History and Physical - Chief Complaint Chest pain, shortness of breath - History of Present Illness 68 y/o male presents to the emergency room with c/o of shortness of breath upon exertion. Onset was 2 months ago and has progressively worsened to the point it causes chest tightness and occasional tingling to the left arm. 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 He reports he is anxious and depressed about it and does not want to have a heart attack so he decided to come to the emergency room to speed the process and for monitoring. He is being admitted for observation and monitoring. Past Medical/Surgical History 1. CAD s/p CABG x 3 vessels 2. NIDDM 3. Hypertension 4. Stents to LAD and RCA 5. YURI with CPAP 6. Lymes Disease Social 1. Denies tobacco or illicit drug use. Drinks a glass of wine occasionally. . Retired. Vital Signs 159/84 53 HR 14 Respirations 36.8c 95%RA History Information - Allergies/Home Medication List Allergies/Adverse Reactions: morphine Allergy (Severe, Verified 09/22/18 10:54) Hypotension Home Medications: Clopidogrel Bisulfate [Clopidogrel] 75 mg PO DAILY 01/14/16 [Last Taken 09/21/18 ] Fenofibrate [Tricor 145 mg (*)] 145 mg PO HS 01/14/16 [Last Taken 09/21/18] Herbals/Supplements -Info Only 1 ea PO DAILY 01/14/16 [Last Taken 01/12/16] Magnesium Oxide [Magnesium Oxide 400 mg (*)] 200 mg PO BID 01/14/16 [Last Taken 09/21/18 21:00] Multivitamins [Multivitamin (*)] 1 each PO BID 01/14/16 [Last Taken 09/21/18] [place]-3 Fatty Acids [Fish Oil 1000 mg (*)] 1,000 mg PO BID 01/14/16 [Last Taken 09/21/18 21:00] Pitavastatin Calcium [Livalo] 2 mg PO HS 01/14/16 [Last Taken 09/21/18] Liothyronine Sodium [Cytomel 25 mcg (*)] 25 mcg PO DAILY 02/13/16 [Last Taken ] Cyanocobalamin [Vitamin B12 (*)] 1,000 mcg PO DAILY 09/22/18 [Last Taken ] Levothyroxine [Synthroid 50 mcg (*)] 50 mcg PO DAILY06 09/22/18 [Last Taken ] Liothyronine Sodium [Cytomel 5 mcg (*)] 5 mcg PO DAILY 09/22/18 [Last Taken ] Ramipril [Altace] 10 mg PO DAILY 09/22/18 [Last Taken 09/21/18] metFORMIN HCL [Glucophage 500 mg (*)] 500 mg PO BID 09/22/18 [Last Taken 21:00] I have personally reviewed and updated: family history, medical history, social history, surgical history Past Medical History: See HPI list - Surgical History Additional surgical history: See HPI list - Family History Positive for: hypertension Additional family history: Father committed suicide at age 50. Mother recently has "flatlined" a couple of times. - Social History Smoking Status: Former smoker Alcohol Use: Rarely Drug Use: None Review of Systems Review of Systems: ROS: 10pt was reviewed & negative except for what was stated in HPI & below Constitutional: Reports: malaise (For him, it is hard to decipher his feelings of fatigue and generally not feeling well is from Lymes disease or cardiac related) EENMT: Reports: no symptoms Cardiac: Reports: chest pain (described as chest tightness) Respiratory: Reports: shortness of breath (with exertion) Gastrointestinal: Reports: nausea Genitourinary: Reports: no symptoms Muscolosketal: Reports: muscle stiffness, neck pain Skin: Reports: no symptoms Neurological: Reports: anxiety, depressed, tingling (occasionally in left arm when SOB) Hematologic/Lymphatic: Reports: no symptoms Immunologic/Allergy: Reports: other (see allergy list) Physical Exam Physical Exam: Lab data and imaging was reviewed Temp Pulse Resp BP Pulse Ox 36.6 C 55 L 15 130/74 H 97 09/22/18 14:35 09/22/18 15:40 09/22/18 14:35 09/22/18 15:41 09/22/18 14:35 Constitutional: no apparent distress, appears nourished, not in pain Eyes: PERRL, anicteric sclera, EOMI Ears, Nose, Mouth, Throat: moist mucous membranes, hearing normal, ears appear normal, no oral mucosal ulcers Cardiovascular: regular rate and rhythym, no murmur, rub, or gallop, No edema Peripheral Pulses: 2+: dorsalis-pedis (R) (Radial 2+), dorsalis-pedis (L) ( Radial 2+) Respiratory: no respiratory distress, no rales or rhonchi, clear to auscultation Gastrointestinal: normoactive bowel sounds, soft, non-tender abdomen, no palpable masses Genitourinary: no bladder fullness, no bladder tenderness Skin: warm, normal color, no rashes or abrasions, no fluctuance, no induration, No mottled Musculoskeletal: full muscle strength, no muscle tenderness, normal joint ROM, no joint effusions Neurologic: AAOx3, sensation intact bilaterally, CN II-XII Intact Psychiatric: interacting appropriately, not anxious, not encephalopathic, thought process linear Lymph, Heme, Immunologic: no cervical LAD, no supraclavicular LAD Lab Data & Imaging Review 09/22/18 11:06 09/22/18 11:06 WBC 5.20 10^3/uL (3.80-9.50) 09/22/18 11:06 RBC 4.65 10^6/uL (4.40-6.38) 09/22/18 11:06 Hgb 15.5 g/dL (13.7-17.5) 09/22/18 11:06 Hct 43.5 % (40.0-51.0) 09/22/18 11:06 MCV 93.5 fL (81.5-99.8) 09/22/18 11:06 MCH 33.3 pg (27.9-34.1) 09/22/18 11:06 MCHC 35.6 g/dL (32.4-36.7) 09/22/18 11:06 RDW 12.9 % (11.5-15.2) 09/22/18 11:06 Plt Count 217 10^3/uL (150-400) 09/22/18 11:06 MPV 10.7 fL (8.7-11.7) 09/22/18 11:06 Neut % (Auto) 64.6 % (39.3-74.2) 09/22/18 11:06 Lymph % (Auto) 26.5 % (15.0-45.0) 09/22/18 11:06 Grand % (Auto) 5.8 % (4.5-13.0) 09/22/18 11:06 Eos % (Auto) 2.1 % (0.6-7.6) 09/22/18 11:06 Baso % (Auto) 0.6 % (0.3-1.7) 09/22/18 11:06 Nucleat RBC Rel Count 0.0 % (0.0-0.2) 09/22/18 11:06 Absolute Neuts (auto) 3.36 10^3/uL (1.70-6.50) 09/22/18 11:06 Absolute Lymphs (auto) 1.38 10^3/uL (1.00-3.00) 09/22/18 11:06 Absolute Monos (auto) 0.30 10^3/uL (0.30-0.80) 09/22/18 11:06 Absolute Eos (auto) 0.11 10^3/uL (0.03-0.40) 09/22/18 11:06 Absolute Basos (auto) 0.03 10^3/uL (0.02-0.10) 09/22/18 11:06 Absolute Nucleated RBC 0.00 10^3/uL (0-0.01) 09/22/18 11:06 Immature Gran % 0.4 % (0.0-1.1) 09/22/18 11:06 Immature Gran # 0.02 10^3/uL (0.00-0.10) 09/22/18 11:06 Sodium 139 mEq/L (135-145) 09/22/18 11:06 Potassium 4.4 mEq/L (3.5-5.2) 09/22/18 11:06 Chloride 108 mEq/L (97-110) 09/22/18 11:06 Carbon Dioxide 24 mEq/l (22-31) 09/22/18 11:06 Anion Gap 7 mEq/L (6-14) 09/22/18 11:06 BUN 20 mg/dL (7-23) 09/22/18 11:06 Creatinine 1.1 mg/dL (0.7-1.3) 09/22/18 11:06 Estimated GFR > 60 09/22/18 11:06 Glucose 121 mg/dL (70-100) H 09/22/18 11:06 Calcium 9.7 mg/dL (8.5-10.4) 09/22/18 11:06 Total Bilirubin 0.9 mg/dL (0.1-1.4) 09/22/18 11:06 Conjugated Bilirubin 0.3 mg/dL (0.0-0.5) 09/22/18 11:06 Unconjugated Bilirubin 0.6 mg/dL (0.0-1.1) 09/22/18 11:06 AST 34 IU/L (17-59) 09/22/18 11:06 ALT 34 IU/L (21-72) 09/22/18 11:06 Alkaline Phosphatase 65 IU/L (38-126) 09/22/18 11:06 POC Troponin I 0.01 ng/mL (0.00-0.08) 09/22/18 11:08 NT-Pro-B Natriuret Pep 77 pg/mL (0-125) 09/22/18 11:06 Total Protein 6.9 g/dL (6.3-8.2) 09/22/18 11:06 Albumin 4.2 g/dL (3.5-5.0) 09/22/18 11:06 Assessment & Plan Plan: This is a 68 y/o male presenting with 2 months worth of SOB upon exertion that has progressively worsened. Endures chest tightness and occasional tingling to left arm. For him, it is hard to tell whether it is his Lymes disease ( diagnosed 2 years ago) versus cardiac related that causes fatigue and the feeling of weakness. 1. Chest pain: heart score is 6 (history is highly suspicious, age is over 65 years and he has a history of arthrosclerotic disease). EKG unremarkable, SR. CXR unremarkable with no acute processes. ECHO performed with LVEF 64%. -Cardiology consulted and aware -Lexiscan MPI stress test tomorrow. If significant changes, may perform coronary angiogram -Cardiac diet now, NPO at midnight tonight -No CP currently; nitroglycerin PRN. Cont tele monitoring. -Cycling trops, CBC/CMP tomorrow -He may continue plavix 2. Hyperlipidemia -Lipid panel tomorrow -May continue atorvastatin, tricor 3. Hypertension -May continue metoprolol, altace 4. NIDDM: holding metformin and started on an ISS. 5. RUQ discomfort: abdominal US performed revealing fatty liver and lobularity of the lateral right renal midpole. -Continue to monitor -Anti-emetics PRN -Tylenol for pain PRN 6. YURI: continue to monitor. Uses CPAP. Diet: Cardiac now, NPO at midnight tonight VTE ppx: SCDs Code: Full Dispo: Admit to obs <Man Downing - Last Filed: 09/22/18 16:50> History and Physical - History of Present Illness Review of Systems Review of Systems: Physical Exam Physical Exam: Temp Pulse Resp BP Pulse Ox 36.6 C 55 L 15 130/74 H 97 09/22/18 14:35 09/22/18 15:40 09/22/18 14:35 09/22/18 15:41 09/22/18 14:35 Lab Data & Imaging Review 09/22/18 11:06 09/22/18 11:06 WBC 5.20 10^3/uL (3.80-9.50) 09/22/18 11:06 RBC 4.65 10^6/uL (4.40-6.38) 09/22/18 11:06 Hgb 15.5 g/dL (13.7-17.5) 09/22/18 11:06 Hct 43.5 % (40.0-51.0) 09/22/18 11:06 MCV 93.5 fL (81.5-99.8) 09/22/18 11:06 MCH 33.3 pg (27.9-34.1) 09/22/18 11:06 MCHC 35.6 g/dL (32.4-36.7) 09/22/18 11:06 RDW 12.9 % (11.5-15.2) 09/22/18 11:06 Plt Count 217 10^3/uL (150-400) 09/22/18 11:06 MPV 10.7 fL (8.7-11.7) 09/22/18 11:06 Neut % (Auto) 64.6 % (39.3-74.2) 09/22/18 11:06 Lymph % (Auto) 26.5 % (15.0-45.0) 09/22/18 11:06 Grand % (Auto) 5.8 % (4.5-13.0) 09/22/18 11:06 Eos % (Auto) 2.1 % (0.6-7.6) 09/22/18 11:06 Baso % (Auto) 0.6 % (0.3-1.7) 09/22/18 11:06 Nucleat RBC Rel Count 0.0 % (0.0-0.2) 09/22/18 11:06 Absolute Neuts (auto) 3.36 10^3/uL (1.70-6.50) 09/22/18 11:06 Absolute Lymphs (auto) 1.38 10^3/uL (1.00-3.00) 09/22/18 11:06 Absolute Monos (auto) 0.30 10^3/uL (0.30-0.80) 09/22/18 11:06 Absolute Eos (auto) 0.11 10^3/uL (0.03-0.40) 09/22/18 11:06 Absolute Basos (auto) 0.03 10^3/uL (0.02-0.10) 09/22/18 11:06 Absolute Nucleated RBC 0.00 10^3/uL (0-0.01) 09/22/18 11:06 Immature Gran % 0.4 % (0.0-1.1) 09/22/18 11:06 Immature Gran # 0.02 10^3/uL (0.00-0.10) 09/22/18 11:06 Sodium 139 mEq/L (135-145) 09/22/18 11:06 Potassium 4.4 mEq/L (3.5-5.2) 09/22/18 11:06 Chloride 108 mEq/L (97-110) 09/22/18 11:06 Carbon Dioxide 24 mEq/l (22-31) 09/22/18 11:06 Anion Gap 7 mEq/L (6-14) 09/22/18 11:06 BUN 20 mg/dL (7-23) 09/22/18 11:06 Creatinine 1.1 mg/dL (0.7-1.3) 09/22/18 11:06 Estimated GFR > 60 09/22/18 11:06 Glucose 121 mg/dL (70-100) H 09/22/18 11:06 Calcium 9.7 mg/dL (8.5-10.4) 09/22/18 11:06 Total Bilirubin 0.9 mg/dL (0.1-1.4) 09/22/18 11:06 Conjugated Bilirubin 0.3 mg/dL (0.0-0.5) 09/22/18 11:06 Unconjugated Bilirubin 0.6 mg/dL (0.0-1.1) 09/22/18 11:06 AST 34 IU/L (17-59) 09/22/18 11:06 ALT 34 IU/L (21-72) 09/22/18 11:06 Alkaline Phosphatase 65 IU/L (38-126) 09/22/18 11:06 POC Troponin I 0.01 ng/mL (0.00-0.08) 09/22/18 11:08 NT-Pro-B Natriuret Pep 77 pg/mL (0-125) 09/22/18 11:06 Total Protein 6.9 g/dL (6.3-8.2) 09/22/18 11:06 Albumin 4.2 g/dL (3.5-5.0) 09/22/18 11:06 Assessment & Plan Assessment: Shawnservando Mr Devlin is a 68 year old male with pmh of CAD who follows with Dr. Greer and was scheduled to have a cardiac catheterization originally. He has been having increased shortness of breath over the last few weeks. The decision was made to obtain a stress test prior to the lexiscan. The patient became anxious and discussed this with cardiology who decided to have him admitted to have the stress test expedited. He also has been having some abdominal pain. plan to admit cycle trops -stress test in am -TTE -abdominal US Other issues per [employer]
[2018-09-22] MEDS: INSULIN LISPRO 100 UNIT/ML SC SCH (17:15)
[2018-09-22] MEDS: MAGNESIUM OXIDE 400 MG TAB PO SCH (21:08)
[2018-09-22] MEDS: FENOFIBRATE 145 MG TAB PO SCH (21:08)
[2018-09-22] MEDS: ACETAMINOPHEN 325 MG TAB PO PRN (22:26)
[2018-09-22] MEDS: ATORVASTATIN CALCIUM 10 MG TAB PO SCH (23:44)
[2018-09-23 04:08] LABS: PLATELET COUNT 182 10^3/uL (150-400)
[2018-09-23] MEDS: LIOTHYRONINE SODIUM 5 MCG TAB PO SCH (08:18)
[2018-09-23] MEDS: LEVOTHYROXINE 50 MCG TAB PO SCH (08:18)
[2018-09-23] MEDS: LIOTHYRONINE SODIUM 25 MCG TAB PO SCH (08:18)
[2018-09-23] MEDS ORDERED: REGADENOSON 0.4 MG/5 ML SYR IVP ONE (09:04)
--- NOTE | 2018-09-23 10:30 | CPR ---
PROCEDURE: Exercise treadmill exercise treadmill myocardial perfusion imaging study. INDICATION FOR EXERCISE TREADMILL: Ongoing fatigue symptoms, shortness of breath, and left arm pain, similar symptoms to what he has had prior to previous PCIs. Known history of CAD. PRE: After obtaining informed consent, ensuring the patient was placed on electrocardiogram, initial EKG showing sinus rhythm, normal axis, with no significant ST or T-wave abnormalities. Patient repo rting no chest pain, pressure, or symptoms suggesting of ischemia. A saturation greater than 90%, in itial blood pressure 112/70. STRESS: The patient was placed on exercise treadmill, following standard Ryan protocol with the [facility] findings: 1. Patient exercised for 9 minutes. 2. 10.2 METs. 3. Patient obtained a heart rate of 132 BPM, which was 86% of MPHR. 4. Patient was noted to have up to [address] depression in lateral leads at peak exercis e. 5. Patient did experience left arm pain at peak exercise but no chest pressure or pain. 6. Patient was noted to have occasional PVCs during stress and recovery. 7. BP response was resting 112/70, peak 220/60. 8. SpO2 greater than 90% throughout testing. 9. Testing was stopped due to maximum effort. 10. Ching treadmill score of -5 placing patient at intermediate risk. RECOVERY: Patient recovered for 5 minutes, EKG returned back to the heart rate, and EKG returned danilo k to baseline. Patient reporting within 1 minute of recovery the left arm pain subsiding. Occasiona l PVC was noted. No other malignant arrhythmias or pauses. After 5 minutes recovery, final blood pr essure was 148/78. With his vital signs stable and asymptomatic, the patient was taken down to [facility] for post-stress imaging. IMPRESSION: 68-year-old male with known history of coronary artery disease, coronary artery bypass g raft, who has been reporting ongoing fatigue symptoms, mild shortness of breath, and occasional left arm pain but no chest pressure being evaluated for cardiac ischemia. The patient's stress test, the patient with positive ST depression suggesting ischemia. Ching treadmill score of -5 for intermediate risk. The patient has been taken down to nuclear imaging for further evaluation for post-stress tata ging. Will evaluate post imaging study results. /[id number]/MODL
[2018-09-23] MEDS: RAMIPRIL 5 MG CAP PO SCH (10:41)
[2018-09-23] MEDS: CLOPIDOGREL BISULFATE 75 MG TAB PO SCH (10:41)
[2018-09-23] MEDS: MAGNESIUM OXIDE 400 MG TAB PO SCH ×2 (10:41→19:50)
[2018-09-23] MEDS: METOPROLOL SUCCINATE XR 50 MG TAB PO SCH (10:43)
[2018-09-23] MEDS: INSULIN LISPRO 100 UNIT/ML SC SCH ×3 (10:58→19:00)
[2018-09-23] MEDS ORDERED: IOPAMIDOL (ISOVUE-300) 100 ML BTL ONE (11:12)
--- NOTE | 2018-09-23 14:11 | PDCARPN ---
Cardiology Progress Note Chief Complaint: Patient reports he would like to eat Assessment/Plan: Assessment: 68-year-old male with significant past history includes CAD with remote CABG, multiple PCIs most recent VANDANA implantation of the LAD and RCA January of 2016, hypertension, hyperlipidemia, type 2 diabetes 10 history of PVCs. Admitted for complain exertional shortness of breath, occasional left arm pain ( similar symptoms that he had prior to P is PCI). Also reporting right upper quadrant abdominal pain. EKG showed no ischemic changes on admission. Negative troponins x3. Abdominal ultrasound done on 09/22/2018 showing fatty liver,, lobular of lateral right renal midpole, may represent normal renal contours from this patient, though consider renal CT. Echocardiogram done on noting normal LV size, mild concentric LVH, EF 64%, normal LV systolic function, trivial MR, mild calcified aortic next valve with stenosis, mean gradient of 12 mm Hg. Mild AI, mild TR, RVSP of 29 mm Hg. 09/23/2018: Patient underwent ETT/MPI study, patient noted to have [address] depression on exercise treadmill, Ching treadmill score of -5, MPI study imaging noted normal perfusion, no CA, no reversible ischemia, no wall motion abnormalities, EF of 61%. Together this makes a low risk stress test. Patient reporting no episodes of chest pressure pain overnight. Feels that his shortness of and arm pain have improved during the night. Follow-up CT for abdominal ultrasound did note obstruction of the left uterus trivial ir junction , stone causing moderate to severe left hydronephrosis. Plan: 1. Shortness of breath, left arm pain: Low risk stress test. Echo showing normal LV wall motion with no wall motion abnormalities. Continue on medical management for CAD. Pending on results of upcoming testing, if patient is discharged, would like him to have early follow-up with us in office for re- evaluation. Have scheduled him to be seen by myself next week. 2. CAD: History of CABG, and multiple PCIs. Last PCI 2015. Continue on current anti-platelet therapy of clopidogrel. Continue on metoprolol succinate , and ramipril. 3. Hyperlipidemia: Laboratory studies showed adequate suppression of LDL. Continue on current dose of atorvastatin and tricor. 4. Urolithiasis: CT noting right renal stone, causing moderate to severe left hydronephrosis. Discussed with Dr. Dudley of hospitalist services. Urology consult has been ordered. 09/23/18 14:08 Subjective: Patient denies of any chest pressure or pain. Reports shortness of breath has significantly improved since hospitalization. Denies of any palpitations, lightheadedness, near-syncope or syncopal events. Reviewed/Discussed With: hospitalist (Dr. Dudley), other (Dr. Prabhakar) Objective: Vital Signs (8 Hrs) Temp Pulse Resp BP Pulse Ox 09/23/18 11:11 36.6 C 97 17 116/78 94 09/23/18 10:41 123/73 H 09/23/18 08:00 36.6 C 95 19 123/63 H 94 Intake/Output (24 Hrs) 09/22/18 09/23/18 09/24/18 05:59 05:59 05:59 Intake Total 1295 Balance 1295 Intake: Oral (ml) 1295 Other: Weight 106.594 kg Number of Voids 1 Toilet 2 Result Diagrams: 09/23/18 03:47 09/23/18 03:47 Cardiac Labs: Cardiac Lab Results (72 Hrs) 09/23/18 09/22/18 03:47 16:58 Troponin I < 0.012 < 0.012 - Physical Exam Constitutional: no apparent distress, obese Ears, Nose, Mouth, Throat: moist mucous membranes Cardiovascular: regular rate and rhythm, pulses symmetric bilat, No jugular vein distention Peripheral Pulses: 1+: dorsalis-pedis (R), dorsalis-pedis (L), 2+: carotid (R), carotid (L) Respiratory: clear to auscultate bilat, no crackles, no wheezes Gastrointestinal: normoactive bowel sounds, tenderness (Right upper quadrant with palpitation), No ascites Skin: no rashes, warm, no edema Neurologic: AAOx3 Psychiatric: cooperative, interactive ICD10 Worksheet Patient Problems: Problems Problem Status Onset Chest pain Acute CAD (coronary artery disease) Acute Dyspnea on exertion Acute
--- NOTE | 2018-09-23 14:51 | HOSPPROG ---
Hospitalist Progress Note Assessment/Plan: Rose Mr Devlin is a 68 year old male with pmh of CAD who follows with Dr. Greer and was scheduled to have a cardiac catheterization originally. He has been having increased shortness of breath over the last few weeks. The decision was made to obtain a stress test prior to the lexiscan. The patient became anxious and discussed this with cardiology who decided to have him admitted to have the stress test expedited. He also has been having some abdominal pain. - MPS performed this morning which was negative for ischemia - CT A/P performed to f/u R renal pole abnormality which was negative for mass but showed obstructing nephrolithiasis at L UVJ with mod to severe hydronephrosis - Consulted Urology for further evaluation of L sided nephrolithiasis and hydronephrosis, f/u recommendations, will make NPO at midnight Dispo: Pending urological evaluation Subjective: Patient reports persistance of abdominal pain, mild Objective: Vital Signs Temp Pulse Resp BP Pulse Ox 36.6 C 97 17 116/78 94 09/23/18 11:11 09/23/18 11:11 09/23/18 11:11 09/23/18 11:11 09/23/18 11:11 Laboratory Results 09/23/18 03:47 09/23/18 03:47 09/22/18 09/23/18 09/24/18 05:59 05:59 05:59 Intake Total 1295 Balance 1295 - Physical Exam Constitutional: no apparent distress Eyes: PERRL Ears, Nose, Mouth, Throat: moist mucous membranes Cardiovascular: regular rate and rhythym Respiratory: no respiratory distress Gastrointestinal: soft, non-tender abdomen Genitourinary: no bladder tenderness Neurologic: AAOx3 Psychiatric: interacting appropriately ICD10 Worksheet Patient Problems: Problems Problem Status Onset CAD (coronary artery disease) Acute Chest pain Acute Dyspnea on exertion Acute
--- NOTE | 2018-09-23 15:06 | ASMTCMCOM ---
CM Note CM Note Notes: CM reviewed pt's chart for d/c planning. Pt is a 68 y/o male who came to the ED with shortness of breadth. He has a hx of HTN. He is and normally lives independently. is Evelyn, . No orders for PT/OT eval. No CM needs currently identified. CM will follow for changes. D/C Plan: Anticipate independent. Date Signed: 09/23/2018 03:05 PM Electronically Signed By:Tova Odonnell
--- NOTE | 2018-09-23 15:23 | PDMN ---
Medical Necessity Medical necessity: [employer] Urologic Disease: 68 yo presents w/ SOB, chest tightness and pain, tingling to L arm. Initially OBS for workup, cardiology consulted, stress test completed w/ + ST depression suggesting ischemia indicating further workup which was neg for ischemia. Additionally, CT A/P performed to f/u on renal abnormality showing obstructing nephrolithiasis w/ mod -severe hydronephrosis. Urology consult pending. Pt will require additional MN for ongoing dx testing, monitoring and potential urologic procedure. Meets [facility] urologic disease IP criteria for new hydronephrosis and obstruction. Hx CAD s/p CABGx3 vessels, NIDDM, HTN, stents to LAD and RCE, YURI w/ CPAP and Lymes disease. Change to IP status 09/23/18@1451 per MD order.
[2018-09-23] MEDS: ACETAMINOPHEN 325 MG TAB PO PRN ×2 (15:28→21:48)
[2018-09-23] MEDS: FENOFIBRATE 145 MG TAB PO SCH (19:50)
[2018-09-23] MEDS: ATORVASTATIN CALCIUM 10 MG TAB PO SCH (20:04)
[2018-09-24] MEDS: LEVOTHYROXINE 50 MCG TAB PO SCH (04:08)
[2018-09-24 04:18] LABS: PLATELET COUNT 186 10^3/uL (150-400)
[2018-09-24] MEDS: INSULIN LISPRO 100 UNIT/ML SC SCH ×2 (07:52→12:41)
[2018-09-24] MEDS ORDERED: IOPAMIDOL (ISOVUE-M 300) 15 ML VIAL ONE (09:13)
[2018-09-24] MEDS ORDERED: LIDOCAINE 2% JELLY 20 ML (UROJECT) ONE (09:13)
[2018-09-24] MEDS ORDERED: PROPOFOL 200 MG/20 ML VIAL ONE (09:19)
[2018-09-24] MEDS ORDERED: fentaNYL 100 MCG/2 ML INJ ONE (09:19)
[2018-09-24] MEDS ORDERED: LIDOCAINE 2% 2 ML INJ ONE ×2 (09:21)
[2018-09-24] MEDS ORDERED: HYDROmorphONE/DILAUDID 2 MG/ML INJ IVP PRN (09:24)
[2018-09-24] MEDS ORDERED: NALOXONE HCL 0.4 MG/ML INJ IVP PRN (09:24)
[2018-09-24] MEDS ORDERED: ONDANSETRON 4 MG/2 ML VIAL IVP PRN (09:24)
[2018-09-24] MEDS ORDERED: ALBUTEROL 3 ML DEYVIAL IH PRN (09:24)
[2018-09-24] MEDS ORDERED: fentaNYL 100 MCG/2 ML INJ IVP PRN (09:24)
[2018-09-24] MEDS ORDERED: RANITIDINE 50 MG/2 ML VIAL ONE (09:26)
[2018-09-24] MEDS ORDERED: ONDANSETRON 4 MG/2 ML VIAL ONE (09:26)
[2018-09-24] MEDS ORDERED: METOCLOPRAMIDE 10 MG/2 ML VIAL ONE (09:26)
--- NOTE | 2018-09-24 09:26 | PDANEPAE ---
ANE History of Present Illness Ureteroscopy ANE Past Medical History - Cardiovascular History Hx Hypertension: Yes Hx Arrhythmias: Yes Hx Chest Pain: Yes Hx Coronary Artery / Peripheral Vascular Disease: Yes - Pulmonary History Hx Asthma/Reactive Airway Disease: Yes Hx Oxygen in Use at Home: No Hx Sleep Apnea: Yes Sleep Apnea Screening Result - Last Documented: Positive - Endocrine History Hx Diabetes: Yes Hypothyroid: Yes - Chronic Pain History Chronic Pain: No ANE Review of Systems Review of Systems: ANE Patient History - Allergies Allergies/Adverse Reactions: morphine Allergy (Severe, Verified 09/22/18 10:54) Hypotension - Home Medications Home Medications: Clopidogrel Bisulfate [Clopidogrel] 75 mg PO DAILY 01/14/16 [Last Taken 09/21/18 ] Fenofibrate [Tricor 145 mg (*)] 145 mg PO HS 01/14/16 [Last Taken 09/21/18] Herbals/Supplements -Info Only 1 ea PO DAILY 01/14/16 [Last Taken 01/12/16] Magnesium Oxide [Magnesium Oxide 400 mg (*)] 200 mg PO BID 01/14/16 [Last Taken 09/21/18 21:00] Multivitamins [Multivitamin (*)] 1 each PO BID 01/14/16 [Last Taken 09/21/18] [place]-3 Fatty Acids [Fish Oil 1000 mg (*)] 1,000 mg PO BID 01/14/16 [Last Taken 09/21/18 21:00] Pitavastatin Calcium [Livalo] 2 mg PO HS 01/14/16 [Last Taken 09/21/18] Liothyronine Sodium [Cytomel 25 mcg (*)] 25 mcg PO DAILY 02/13/16 [Last Taken ] Cyanocobalamin [Vitamin B12 (*)] 1,000 mcg PO DAILY 09/22/18 [Last Taken ] Levothyroxine [Synthroid 50 mcg (*)] 50 mcg PO DAILY06 09/22/18 [Last Taken ] Liothyronine Sodium [Cytomel 5 mcg (*)] 5 mcg PO DAILY 09/22/18 [Last Taken ] Ramipril [Altace] 10 mg PO DAILY 09/22/18 [Last Taken 09/21/18] metFORMIN HCL [Glucophage 500 mg (*)] 500 mg PO BID 09/22/18 [Last Taken 21:00] - NPO status NPO Since - Liquids (Date): 09/24/18 NPO Since - Liquids (Time): 00:00 NPO Since - Solids (Date): 09/24/18 NPO Since - Solids (Time): 00:00 - Smoking Hx Smoking Status: Former smoker - Alcohol Use Alcohol Use: Sober ANE Labs/Vital Signs - Labs Result Diagrams: 09/24/18 04:08 09/24/18 04:08 - Vital Signs Blood Pressure: 120/64 Heart Rate: 80 Respiratory Rate: 18 O2 Sat (%): 97 Height: 177.8 cm Weight: 106.594 kg ANE Physical Exam - Airway Neck exam: FROM Mallampati Score: Class 2 Mouth exam: normal dental/mouth exam - Pulmonary Pulmonary: clear to auscultation - Cardiovascular Cardiovascular: regular rate and rhythym - ASA Status ASA Status: III ANE Anesthesia Plan Anesthesia Plan: GA w LMA
[2018-09-24] MEDS ORDERED: CEFAZOLIN 2 GM/DEXTROSE/100 ML BAG IV ONE (10:13)
[2018-09-24] MEDS ORDERED: ceFAZolin 2 GM/DEXTROSE 100 ML IV ONE (10:14)
--- NOTE | 2018-09-24 10:14 | PDHPUP ---
History & Physical Update H&P update statement: This history and physical update is based on an assessment of the patient which was completed after admission or registration (within 24 hours), but prior to the surgery/procedure. H&P update: H&P reviewed & patient examined, no change in patient's condition since H&P completed
--- NOTE | 2018-09-24 10:17 | SOAPPROG ---
[facility] Progress Note Assessment/Plan: Assessment: Feeling OK , pain is minimal currently, but severe hydronephrosis and large obstructing stone Plan: to OR for stone management 09/24/18 10:15 Objective: Vital Signs Temp Pulse Resp BP Pulse Ox 36.8 C 80 18 120/64 97 09/24/18 09:17 09/24/18 09:26 09/24/18 09:26 09/24/18 09:26 09/24/18 09:26 Laboratory Results 09/24/18 04:08 09/24/18 04:08 09/23/18 09/24/18 09/25/18 05:59 05:59 05:59 Intake Total 1300 Balance 1300 ICD10 Worksheet Patient Problems: Problems Problem Status Onset CAD (coronary artery disease) Acute Chest pain Acute Dyspnea on exertion Acute
[2018-09-24] MEDS ORDERED: ePHEDrine SULFATE 25 MG/5 ML SYR ONE (10:35)
--- NOTE | 2018-09-24 10:47 | GCON ---
DATE OF CONSULTATION: 09/23/2018 PREOPERATIVE DIAGNOSIS: Left ureteral junction stone, causing severe hydronephrosis. This stone was approximately 8 mm. His flank pain has been significant, and complaints of severe the shortness of breath and chest pain, a cardiac workup was normal, but this stone was identified. He is here for evaluation of this and management. He is also traveling soon out of the country, and we feel that it is best to manage the stone now given his upcoming travel. HISTORY OF PRESENT ILLNESS: This is a 68-year-old male who presented with shortness of breath and left arm pain and noticed that this was causing chest tightness and arm tingling. The patient came to the emergency room for management of this. He underwent a cardiac evaluation, and this was all negative. A CT scan was performed, and this noted an 8 mm left UVJ stone, with severe hydronephrosis behind it. This is a likely cause of his pain. I was asked to see the patient. I saw him on 09/23/2018, and we discussed management of the stone prior to his discharge. He was in agreement of this. He wants this treated. PAST MEDICAL HISTORY: Coronary artery disease, status post CABG x3 in the past , diabetes type 2, hypertension, coronary stents, obstructive sleep apnea, and Lyme disease. SOCIAL HISTORY: He denies tobacco or drug use. Social alcohol intake. ALLERGIES: Morphine. MEDICATIONS: Clopidogrel, fenofibrate, magnesium oxide, statin, liothyronine, cyanocobalamin, levothyroxine, ramipril, and metformin. SURGICAL HISTORY: As stated in the HPI. FAMILY HISTORY: Positive for hypertension. SOCIAL HISTORY: Former smoker. Alcohol use: Rarely. Drug use: None. REVIEW OF SYSTEMS: A 10-point review of systems was negative except for what was stated in the HPI. PHYSICAL EXAMINATION: VITAL SIGNS: Stable. 150s/80s. Heart rate is 50s. CONSTITUTIONAL: In no apparent distress. HEENT: Normocephalic and atraumatic. NECK: Trachea is midline. No lymphadenopathy. CHEST: No retractions or pursed-lip breathing. No cyanosis. CARDIAC: No cyanosis. No lower extremity edema. RESPIRATORY: No retractions. No pursed-lip breathing. GENITOURINARY: Genitals are normal. ABDOMINAL: Soft, nontender, and nondistended. Obese. SKIN: No rashes or lesions. MUSCULOSKELETAL: Moving all 4 extremities well. NEUROLOGIC: Alert and oriented x3. PSYCHIATRIC: Normal mood and affect. INTEGUMENT: No rashes or lesions. Lab data and imaging were reviewed by me. ASSESSMENT AND PLAN: A 68-year-old male with an 8 mm ureterovesical junction stone and intermittent abdominal pain and chest pain. It should be noted that since his history of Lyme disease, he has difficulty determining where pain is coming from and difficulty elucidating his feelings. He is interested in having the stone treated, and he will be brought to the operating room tomorrow for this. We will keep him n.p.o. /[id number]/MODL MTDD
--- NOTE | 2018-09-24 11:23 | POSTANESTH ---
Post Anesthetic Evaluation Cardiovascular Status: Normal, Stable Respiratory Status: Normal, Stable Level of Consciousness/Mental Status: Can Participate in Eval, Alert and Oriented Pain Control: Adequate, Prn Tx Ordered Nausea/Vomiting Control: Adequate, Prn Tx Ordered
--- NOTE | 2018-09-24 11:33 | POSTOPPROG ---
Post Op Note Date of Operation: 09/24/18 Surgeon: Demetrius Carpio Anesthesia: GET(General Endotracheal) Pre-op Diagnosis: left obstructing ureteral stone Post-op Diagnosis: same Indication: obstructiong stone Procedure: left obstructing ureteral stone Inf/Abcess present in the surg proc area at time of surgery?: No Depth: Superfical (Skin SQ) EBL: Minimal Complications: none
--- NOTE | 2018-09-24 11:35 | SOAPPROG ---
SOAP Progress Note Assessment/Plan: Assessment: Feeling OK , pain is minimal currently, but severe hydronephrosis and large obstructing stone Addendum - POSTOP CARE - Pt to be dcd home on tamsulosin 0.4 mg PO daily x 60 days Percocet 30 d supply - PT TO FOLLOWUP W ME FOR STENT REMOVAL FIRST WEEK OF OCTOBER - CALL [phone] FOR APPT - NUMBER AND PLAN DISCUSSED W PTS PARTNER ALSO DISCUSSED W PATIENT Plan: to OR for stone management 09/24/18 10:15 09/24/18 11:34 Objective: Vital Signs Temp Pulse Resp BP Pulse Ox 36.5 C 80 17 145/82 H 97 09/24/18 11:20 09/24/18 09:26 09/24/18 11:21 09/24/18 11:21 09/24/18 09:26 Laboratory Results 09/24/18 04:08 09/24/18 04:08 09/23/18 09/24/18 09/25/18 05:59 05:59 05:59 Intake Total 1300 Output Total 220 Balance 1300 -220 ICD10 Worksheet Patient Problems: Problems Problem Status Onset CAD (coronary artery disease) Acute Chest pain Acute Dyspnea on exertion Acute
[2018-09-24 12:22] VITALS: BP 141/76
[2018-09-24] MEDS: LIOTHYRONINE SODIUM 25 MCG TAB PO SCH (12:35)
[2018-09-24] MEDS: MAGNESIUM OXIDE 400 MG TAB PO SCH (12:35)
[2018-09-24] MEDS: LIOTHYRONINE SODIUM 5 MCG TAB PO SCH (12:35)
[2018-09-24] MEDS: RAMIPRIL 5 MG CAP PO SCH (12:35)
[2018-09-24] MEDS: CLOPIDOGREL BISULFATE 75 MG TAB PO SCH (12:35)
[2018-09-24] MEDS: METOPROLOL SUCCINATE XR 50 MG TAB PO SCH (12:39)
[2018-09-24] MEDS: ACETAMINOPHEN 325 MG TAB PO PRN (12:43)
[2018-09-24] MEDS ORDERED: POLYETHYLENE GLYCOL 3350 17 GM PKT PO PRN (13:57)
[2018-09-24] MEDS ORDERED: BISACODYL 10 MG SUPP PR PRN (13:57)
[2018-09-24] MEDS ORDERED: LACTULOSE 20 GM/30 ML UDCUP PO PRN (13:57)
[2018-09-24] MEDS ORDERED: MAGNESIUM HYDROXIDE 30 ML UDCUP PO PRN (13:57)
[2018-09-24] MEDS ORDERED: OXYCODONE/APAP 5/325 TAB PO PRN (14:15)
--- NOTE | 2018-09-24 15:18 | ASMTLACE ---
LACE Length of stay for Answers: 1 day current admission Comorbidities - select Answers: Other Notes: HTN all that apply # of Emergency department Answers: 1-2 visits in the last 6 months Score: 3 Date Signed: 09/24/2018 03:17 PM Electronically Signed By:DIANA Sheridan
--- NOTE | 2018-09-24 15:23 | ASDISCHSUM ---
Discharge Information Plan Status:Home with No Needs Medically Cleared to Leave: Discharge Date: CM D/C Disposition:Home, Routine, Self-Care ADT D/C Disposition: Projected Discharge Date: Transportation at D/C: Discharge Delay Reason: Follow-Up Date: Discharge Slot: Final Diagnosis: Placement Information Patient Contact Information Contact Name:ANIA Relationship: Address:[address] [address] [facility] Work Phone: City:[place] Alternate Phone: State/Zip Code:[place] [address] Email: Financial Information Financial Class:Medicare Primary Plan Desc:MEDICARE OUTPATIENT Primary Plan Number:[id number] Secondary Plan Desc: OUT OF STATE PP Secondary Plan Number:[id number] Assessment Information LACE LACE Length of stay for Answers: 1 day current admission Comorbidities - select Answers: Other Notes: HTN all that apply # of Emergency department Answers: 1-2 visits in the last 6 months Score: 3 Date Signed: 09/24/2018 03:17 PM Electronically Signed By:DIANA Sheridan [facility] CM Progress Note CM Note CM Note Notes: CM reviewed pt's chart for d/c planning. Pt is a 68 y/o male who came to the ED with shortness of breadth. He has a hx of HTN. He is and normally lives independently. is Evelyn, . No orders for PT/OT eval. No CM needs currently identified. CM will follow for changes. D/C Plan: Anticipate independent. Date Signed: 09/23/2018 03:05 PM Electronically Signed By:Tova Odonnell Case Management Discharge Plan Note Case Management Discharge Discharge Order Complete? Answers: Yes Patient to Obtain Answers: via Family Medications Transportation Arranged Answers: Family/Friends Discharge Comments Notes: Pt being discharged independently. No CM needs identified. Family to transport. Date Signed: 09/24/2018 03:22 PM Electronically Signed By:DIANA Sheridan Intervention Information Intervention Type:*IM-Signed Date of Service:09/24/2018 03:22 PM Patient Type:Inpatient Staff Member:DIANA Ward Ema Hours: Discipline: Severity: Comment:signed ad copy in chart
--- NOTE | 2018-09-24 15:40 | PDDCSUM ---
Discharge Summary Discharge Summary: Date of Admission: 09/22/2018 Date of Discharge: 09/24/2018 Consults: Cardiology, Urology Procedures: MPS, Stone Removal/Stent Placement Followup: Cardiology, Urology Hospital Course : Mr Devlin is a 68 year old male with pmh of CAD who follows with Dr. Greer and was scheduled to have a cardiac catheterization originally. He has been having increased shortness of breath over the last few weeks. The decision was made to obtain an outpatient stress test The patient became anxious and discussed this with cardiology who decided to have him admitted to have the stress test expedited. He also has been having some abdominal pain on admission. MPS was performed which was negative for ischemia. CT A/P was performed due to abnormal abdominal U/s, showed obstructing nephrolithiasis at L UVJ with mod-severe associated hydronephrosis. Urology for consulted who took patient to OR for stone removal and stent placement. He will be discharged on Flomax for 60 days and Percocet (30 pills) per Urology. Time spent on discharge was >35 minutes with >50% of time spent on patient education and counseling
[2018-09-24] MEDS ORDERED: SENNOSIDES/DOCUSATE SODIUM TAB PO SCH (21:00)
[2018-09-25] MEDS ORDERED: TAMSULOSIN HCL 0.4 MG CAP PO SCH (09:00)
--- NOTE | 2018-09-26 13:46 | GOP ---
DATE OF OPERATION: 09/24/2018 SURGEON: Demetrius Carpio MD PREOPERATIVE DIAGNOSIS: Left obstructing ureteral stone with severe hydronephrosis. POSTOPERATIVE DIAGNOSIS: Left obstructing ureteral stone with severe hydronephrosis. PROCEDURE PERFORMED: 1. Left ureteroscopy. 2. Laser lithotripsy. 3. Cystoscopy. 4. Stone basketing. 5. Stent placement. FINDINGS: SPECIMENS: Stone sent to pathology for analysis. ESTIMATED BLOOD LOSS: Minimal. INDICATIONS: This patient is a very pleasant 68-year-old male with a large kidney stone. He was bro ught to the operating room for management of this. DESCRIPTION OF PROCEDURE: Patient was identified by name, medical record number, wrist band, brought to the operating room, laid supine on the table, prepped and draped in standard surgical fashion. A 22-[place] cystoscope was inserted in the bladder. The entire bladder was visualized. Left and righ t ureteral orifices were noted to be in normal location. A 0.038 Glidewire was inserted in the left ureter x2, and the ureteroscope was passed up to the level of the stone and laser lithotripsied into sand. The largest fragment was basketed out. A JJ stent was passed and noted to curl in renal pelvi s and the bladder. The patient's bladder was emptied, and he was brought to the recovery room in sta ble condition. COMPLICATIONS: None. URINE OUTPUT: Not recorded. DRAINS: 6-[place]icaraguan stent. /[id number]/MODL
== END 2018-09-24 16:00 | disposition home or self-care (01) | DRG 660 ==
LOC: F2W 14:31 → OBSVTOIN 09-23 14:51
PROVIDERS: ADMIT Internal Medicine; ATTEND Internal Medicine
DX: N20.1 Calculus of ureter (principal); I25.10 Atherosclerotic heart disease of native coronary artery without angina pectoris; I08.2 Rheumatic disorders of both aortic and tricuspid valves; I10 Essential (primary) hypertension; E11.9 Type 2 diabetes mellitus without complications; G47.33 Obstructive sleep apnea (adult) (pediatric); A69.20 Lyme disease, unspecified; Z87.891 Personal history of nicotine dependence; Z95.5 Presence of coronary angioplasty implant and graft; Z95.1 Presence of aortocoronary bypass graft
CPT/HCPCS: 82365-90; 84484-ER; A9500; G0378; J0690; J2405; J2704; J2765; J2780; J2785; J3010; Q9967